=== PATIENT | female | born 1965 | race African-American/Black ===

== ENCOUNTER 2016-11-14 09:36 | Emergency (ER) | payer SELFPAY ==
[2016-11-14] MEDS ORDERED: oxyCODONE TAB* 5 MG TAB PO ONE (10:03)
--- NOTE | 2016-11-14 10:31 | RAD ---
INDICATION: Left foot injury. TECHNIQUE: 3 views of the left foot were obtained. FINDINGS: There is soft tissue swelling over the lateral aspect of the hindfoot and adjacent to the distal first metatarsal. There appears is deformity of the distal fifth metatarsal possibly related to an old fracture. There appears to be an acute nondisplaced fracture of the through the medial aspect of the distal first metatarsal head extending to the articular margin. Joint spaces appear maintained. IMPRESSION: NONDISPLACED INTRA-ARTICULAR FRACTURE OF THE DISTAL FIRST METATARSAL.
--- NOTE | 2016-11-14 10:32 | RAD ---
INDICATION: Left ankle injury. TECHNIQUE: 3 views of the left ankle were obtained. FINDINGS: There is prominent soft tissue swelling adjacent to the lateral aspect of the ankle. On one view there is a faint radiolucent line extending through the distal fibular tip suggestive of a nondisplaced fracture. No other fractures are seen. Joint spaces appear maintained. IMPRESSION: LATERAL SOFT TISSUE SWELLING AND PROBABLE NONDISPLACED FRACTURE OF THE DISTAL FIBULAR TIP.
[2016-11-14] MEDS ORDERED: Atenolol TAB* 50 MG PO ONE (11:50)
--- NOTE | 2016-11-14 12:15 | ED ---
Lower Extremity - HPI Summary HPI Summary: Pt here w/ Lt ankle/foot pain and swelling. She reports falling while trying to stand up from toilet seat - developed pain and fell. She lives alone and her child brought her in today. She denies numbness, tingling, weakness but as a good deal of pain - worse w/ movement. Has not tried anything for pain prior to arrival. H/o similar injury in Rt ankle resulting in fx. She denies osteopenia. Also of note is her BP and heart rate. Pt reports h/o malignant HTN - she [facility] and on atenolol nightly. Chart reveals she was on an ARB. She has not taken either of these medications in months. Denies THOMAS, change in vision, fatigue, chest pain or SOB at this time. Reports [facility] as she wasn't sure how to get there - cab cost is too high. - History of Current Complaint Chief Complaint: EDExtremityLower Stated Complaint: FALL LEFT ANKLE Time Seen by Provider: 11/14/16 10:46 Hx Obtained From: Patient Pain Intensity: 10 - Allergies/Home Medications Allergies/Adverse Reactions: Allergies Allergy/AdvReac Type Severity Reaction Status Date / Time Latex Allergy Intermediate Edema Verified 02/19/15 13:53 Morphine Allergy Mild Vomiting Verified 02/19/15 13:53 Piperacillin [From Zosyn] Allergy Hives Verified 02/19/15 13:53 Tazobactam [From Zosyn] Allergy Hives Verified 02/19/15 13:53 PMH/Surg Hx/FS Hx/Imm Hx Previously Healthy: Yes Endocrine/Hematology History: Reports: Hx Anemia Denies: Hx Anticoagulant Therapy, Hx Blood Disorders, Hx Blood Transfusions, Hx Bone Marrow Disease, Hx Diabetes, Hx Systemic Lupus Erythematosus, Hx Sickle Cell Disease, Hx Thyroid Disease, Hx Unexplained Bleeding, Other Endocrine/ Hematological Disorders Cardiovascular History: Reports: Hx Hypertension - malignant HTN - was on medication - non-compliant Denies: Hx Aneurysm, Hx Angina, Hx Angioplasty, Hx Auto Implanted Cardiovert Defib, Hx Cardiac Arrest, Hx Cardiomegaly, Hx Congenital Heart Disease, Hx Congestive Heart Failure, Hx Coronary Artery Disease, Hx Deep Vein Thrombosis, Hx Embolism, Hx Hypercholesterolemia, Hx Hypotension, Hx Pacemaker/ICD, Hx Peripheral Vascular Disease, Hx Rheumatic Fever, Hx Syncope, Hx Valvular Heart Disease, Other Cardiovascular Problems/Disorders Respiratory History: Reports: Hx Asthma Denies: Hx Chronic Bronchitis, Hx Chronic Obstructive Pulmonary Disease (COPD ), Hx Cystic Fibrosis, Hx Lung Cancer, Hx Pleural Effusion, Hx Pneumonia, Hx Pulmonary Edema, Hx Pulmonary Embolism, Hx Seasonal Allergies, Hx Sleep Apnea, Other Respiratory Problems/Disorders GI History: Reports: Hx Cirrhosis, Hx Gall Bladder Disease, Hx Gastroesophageal Reflux Disease, Other GI Disorders - chronic pancreatitis Denies: Hx Crohn's Disease, Hx Diverticulosis, Hx Gastrointestinal Bleed, Hx Hiatal Hernia, Hx Irritable Bowel, Hx Jaundice, Hx Obstructive Bowel, Hx Ileostomy, Hx Pyloric Stenosis, Hx Ulcer History: Reports: Hx Acute Renal Failure Denies: Hx Benign Prostatic Hyperplasia, Hx Chronic Renal Failure, Hx Dialysis, Hx Kidney Infection, Hx Kidney Stones, Hx Renal Disease, Other Problems/Disorders Sensory History: Reports: Hx Contacts or Glasses Denies: Hx Hearing Aid Opthamlomology History: Reports: Hx Contacts or Glasses Neurological History: Reports: Other Neuro Impairments/Disorders Denies: Hx Dementia, Hx Developmental Delay, Hx Headaches, Hx Migraine, Hx Nerve Disease, Hx Seizures, Hx Spinal Cord Injury, Hx Transient Ischemic Attacks (TIA) Psychiatric History: Reports: Hx Anxiety, Hx Depression, Hx Substance Abuse Denies: Hx Attention Deficit Hyperactivity Disorder, Hx Eating Disorder, Hx Panic Disorder, Hx Post Traumatic Stress Disorder, Hx Inpatient Treatment, Hx Community Mental Health Tx, Hx Schizophrenia, Hx Bipolar Disorder, Hx Suicide Attempt, Hx of Violent Episodes Against Others - Cancer History Hx Chemotherapy: No Hx Radiation Therapy: No Hx Palliative Cancer Treatment: No - Surgical History Surgery Procedure, Year, and Place: X3. APPENDECTOMY. RT ANKLE ORIF. SURGERY FOR BOWEL OBSTRUCTION (UNSURE EXACTLY WHAT WAS DONE). TUBAL. HYSTERECTOMY Hx Anesthesia Reactions: No Infectious Disease History: No Infectious Disease History: Denies: Hx Clostridium Difficile, Hx Hepatitis, Hx Human Immunodeficiency Virus (HIV), Hx of Known/Suspected MRSA, Hx Shingles, Hx Tuberculosis, Hx Known/ Suspected VRE, Hx Known/Suspected VRSA, History Other Infectious Disease, Traveled Outside the [place] in Last 30 Days - Family History Known Family History: Positive: None - Social History Occupation: Unemployed Alcohol Use: Occasionally Alcohol Amount: "twice a week" - pt denies abuse Hx Substance Use: No - pt denies Substance Use Type: Reports: None Substance Use Comment - Amount & Last Used: about 3 times a yr Hx Tobacco Use: No Smoking Status (MU): Never Smoked Tobacco Have You Smoked in the Last Year: No Review of Systems Constitutional: Negative Negative: Fever, Chills, Fatigue Eyes: Negative Negative: Photophobia, Blurred Vision, Diplopia Negative: Dental Pain Cardiovascular: Negative Negative: Chest Pain Respiratory: Negative Negative: Shortness Of Breath Gastrointestinal: Negative Positive: no symptoms reported Musculoskeletal: Other - see HPI Skin: Other - swelling as in HPI Neurological: Negative Psychological: Normal All Other Systems Reviewed And Are Negative: Yes Physical Exam Triage Information Reviewed: Yes Vital Signs On Initial Exam: Initial Vitals Temp Pulse Resp BP Pulse Ox 98.9 F 138 20 112/65 98 11/14/16 09:42 11/14/16 09:42 11/14/16 09:42 11/14/16 09:42 11/14/16 09:42 Vital Signs Reviewed: Yes Appearance: Positive: Well-Appearing - appears chronically fatigued - undereyes are dark w/ sagging, Pain Distress - appears well at rest - pain w/ movement of Lt ankle/foot, Thin Skin: Positive: Warm, Dry - christine edema of dorsal foot and lateral ankle of Lt LE Head/Face: Positive: Normal Head/Face Inspection Eyes: Positive: EOMI ENT: Positive: Hearing grossly normal Respiratory/Lung Sounds: Positive: Breath Sounds Present Cardiovascular: Positive: Normal, RRR, Pulses are Symmetrical in both Upper and Lower Extremities, S1, S2. Negative: Murmur, Rub Musculoskeletal: Positive: Limited @ - Lt ankle and toe movements limited d/t pain Neurological: Positive: Normal, Sensory/Motor Intact, Alert, Oriented to Person Place, Time, CN Intact II-III Psychiatric: Positive: Normal - pt's general education level appears lower than appropriate for age - also detect odor of ETOH - [place]olphin Coma Scale Coma Scale Total: 15 Procedures - Splinting Pre-Made Type: cam walking boot Pre-Proc Neuro Vasc Exam: normal Post-Proc Neuro Vasc Exam: normal Diagnostics - Vital Signs Vital Signs Temp Pulse Resp BP Pulse Ox 11/14/16 10:01 118 97 11/14/16 09:54 98.4 F 125 18 142/105 96 11/14/16 09:42 98.9 F 138 20 112/65 98 - Laboratory Lab Statement: Any lab studies that have been ordered have been reviewed, and results considered in the medical decision making process. Lower Extremity Course/Dx - Course Course Of Treatment: Pt provided with PO pain medication for ankle and foot fractures. Placed in CAM boot and instructed on how to use crutches however she had difficulty. Will take crutches to practice with at home but also reports having a walker she will use. Explained the important of avoiding weight bearing with current injury - pt voices understanding. Explained importance of follow-up with orthopedics as well as PCP to control her malignant HTN - explained dangers of leaving untreated. Explained she may be able to get a [facility] - call to inquire. Provided w/ 30 days of atenolol in the meantime as she's had this in the past w/o difficulty. Minimal norco rx provided as pt denies h/o substance abuse however clinical concern that this is not truthful - do not want to provide medications that could harm her. Explained verbally and in writing how to take these meds and how to f/u if concerns arise. Pt agrees w/ plan. - Diagnoses Provider Diagnoses: Closed fracture of first metatarsal bone of left foot, Closed fracture of left distal fibula, Malignant hypertension Discharge - Discharge Plan Condition: Stable Disposition: HOME Prescriptions: HYDROcodone/ACETAMIN 5-325 MG* [Anatone 5-325 TAB*] 1 tab PO Q6H PRN #12 tab MDD 4 PRN Reason: Pain Ibuprofen TAB* [Motrin TAB* 600 MG] 600 mg PO Q6H PRN #20 tab PRN Reason: Pain Patient Education Materials: Ankle Fracture (ED), Crutch Instructions (ED), Foot Fracture in Adults (ED), Hypertension (ED) Referrals: [facility] [place] [facility] REFERRAL [Outside] Raul Tay MD [Medical Doctor] - Additional Instructions: Keep boot in place until seen by orthopedics - do not bear weight on foot - use crutches to avoid stepping or walking on this leg. Rest, ice, and elevate as much as possible to reduce pain and swelling You may take ibuprofen 600mg every 6 hours with food for pain, swelling You may also take norco, a narcotic pain medication, if pain is not controlled with methods described above. This medication can be deadly if taken above prescribed dose - DO NOT TAKE MORE THAN PRESCRIBED. Do not mix with alcohol or other illicit drugs. Do not operate machinery while taking. If you feel you are developing an addiction to this medication, seek medical assistance at the [facility] or through your PCP's office. For your fractures, follow up with an child welfare specialist. Call Wednesday to schedule an appointment. Contact information included here today. *If you develop numbness or weakness, return to ED NOTE: You have reported a history of malignant hyperntesion. You were taking atenolol 50mg daily for this. We have restarted this for you today however it is advised that you return to a PCP to continue therapy and monitor organs that can become damaged as a result of this condition - these include wrosening of heart function, kidney function, eye sight, etc. It is important that you take medication to prevent heart attack, stroke and other conditions mentioned previously. Please call the referral line or go to [facility] to discuss continued medication therapy. If you develop chest pain, shortness of breath, weakness, syncope, return to ED
[2016-11-14 12:47] VITALS: BP 145/106
== END 2016-11-14 12:49 | disposition home or self-care (01) ==
LOC: ED 09:36
DX: S92.312A Displaced fracture of first metatarsal bone, left foot, initial encounter for closed fracture (principal); S82.832A Other fracture of upper and lower end of left fibula, initial encounter for closed fracture; I10 Essential (primary) hypertension; W18.11XA Fall from or off toilet without subsequent striking against object, initial encounter; Y92.9 Unspecified place or not applicable; Z88.0 Allergy status to penicillin; Z88.5 Allergy status to narcotic agent
CPT/HCPCS: 93005; 99283; A9270-GY

== ENCOUNTER 2017-11-02 14:02 | Emergency (ER) | payer MEDICARE ==
--- NOTE | 2017-11-02 14:34 | ED ---
Neurological HPI - HPI Summary HPI Summary: 52 y/o female presents to the ED c/o pain and numbness in bilateral LE. Neuropathy in lower extremities. Pain aggravated with touch. Pt c/o pinprick tingling in feet going up to her thighs. Sx APPY, bowel obstruction. No DM. Gabapentin not alleviated sx. Associated sx: lower back pain, neck pain, RLQ ABD pain. - History of Current Complaint Chief Complaint: EDExtremityLower Stated Complaint: BACK AND FEET PAIN Hx Obtained From: Patient Neurological Deficit Location: RLE, LLE Pain Intensity: 5 Character: Numbness/Tingling, Sensory Loss Aggravating: Nothing Alleviating: Nothing Associated Signs and Symptoms: Positive: Pain - low back and ABD, Numbness - Additional Pertinent History Primary Care Physician: CRISSY - Allergy/Home Medications Allergies/Adverse Reactions: Allergies Allergy/AdvReac Type Severity Reaction Status Date / Time latex Allergy Edema Verified 11/02/17 14:14 morphine Allergy Vomiting Verified 11/02/17 14:14 piperacillin [From Zosyn] Allergy Hives Verified 11/02/17 14:14 tazobactam [From Zosyn] Allergy Hives Verified 11/02/17 14:14 PMH/Surg Hx/FS Hx/Imm Hx Previously Healthy: No Endocrine/Hematology History: Reports: Hx Anemia Denies: Hx Anticoagulant Therapy, Hx Blood Disorders, Hx Blood Transfusions, Hx Bone Marrow Disease, Hx Diabetes, Hx Systemic Lupus Erythematosus, Hx Sickle Cell Disease, Hx Thyroid Disease, Hx Unexplained Bleeding, Other Endocrine/ Hematological Disorders Cardiovascular History: Reports: Hx Hypertension - malignant HTN - was on medication - non-compliant Denies: Hx Aneurysm, Hx Angina, Hx Angioplasty, Hx Auto Implanted Cardiovert Defib, Hx Cardiac Arrest, Hx Cardiomegaly, Hx Congenital Heart Disease, Hx Congestive Heart Failure, Hx Coronary Artery Disease, Hx Deep Vein Thrombosis, Hx Embolism, Hx Hypercholesterolemia, Hx Hypotension, Hx Pacemaker/ICD, Hx Peripheral Vascular Disease, Hx Rheumatic Fever, Hx Syncope, Hx Valvular Heart Disease, Other Cardiovascular Problems/Disorders Respiratory History: Reports: Hx Asthma Denies: Hx Chronic Bronchitis, Hx Chronic Obstructive Pulmonary Disease (COPD ), Hx Cystic Fibrosis, Hx Lung Cancer, Hx Pleural Effusion, Hx Pneumonia, Hx Pulmonary Edema, Hx Pulmonary Embolism, Hx Seasonal Allergies, Hx Sleep Apnea, Other Respiratory Problems/Disorders GI History: Reports: Hx Cirrhosis, Hx Gall Bladder Disease, Hx Gastroesophageal Reflux Disease, Other GI Disorders - chronic pancreatitis Denies: Hx Crohn's Disease, Hx Diverticulosis, Hx Gastrointestinal Bleed, Hx Hiatal Hernia, Hx Irritable Bowel, Hx Jaundice, Hx Obstructive Bowel, Hx Ileostomy, Hx Pyloric Stenosis, Hx Ulcer History: Reports: Hx Acute Renal Failure Denies: Hx Benign Prostatic Hyperplasia, Hx Chronic Renal Failure, Hx Dialysis, Hx Kidney Infection, Hx Kidney Stones, Hx Renal Disease, Other Problems/Disorders Sensory History: Reports: Hx Contacts or Glasses Denies: Hx Hearing Aid Opthamlomology History: Reports: Hx Contacts or Glasses Neurological History: Reports: Other Neuro Impairments/Disorders Denies: Hx Dementia, Hx Developmental Delay, Hx Headaches, Hx Migraine, Hx Nerve Disease, Hx Seizures, Hx Spinal Cord Injury, Hx Transient Ischemic Attacks (TIA) Psychiatric History: Reports: Hx Anxiety, Hx Depression, Hx Substance Abuse Denies: Hx Attention Deficit Hyperactivity Disorder, Hx Eating Disorder, Hx Panic Disorder, Hx Post Traumatic Stress Disorder, Hx Inpatient Treatment, Hx Community Mental Health Tx, Hx Schizophrenia, Hx Bipolar Disorder, Hx Suicide Attempt, Hx of Violent Episodes Against Others - Cancer History Hx Chemotherapy: No Hx Radiation Therapy: No Hx Palliative Cancer Treatment: No - Surgical History Surgery Procedure, Year, and Place: X3. APPENDECTOMY. RT ANKLE ORIF. SURGERY FOR BOWEL OBSTRUCTION (UNSURE EXACTLY WHAT WAS DONE). TUBAL. HYSTERECTOMY Hx Anesthesia Reactions: No Infectious Disease History: No Infectious Disease History: Denies: Hx Clostridium Difficile, Hx Hepatitis, Hx Human Immunodeficiency Virus (HIV), Hx of Known/Suspected MRSA, Hx Shingles, Hx Tuberculosis, Hx Known/ Suspected VRE, Hx Known/Suspected VRSA, History Other Infectious Disease, Traveled Outside the [place] in Last 30 Days - Family History Known Family History: Positive: None - Social History Alcohol Use: Occasionally Alcohol Amount: "twice a week" - pt denies abuse Hx Substance Use: No - pt denies Substance Use Type: Reports: None Substance Use Comment - Amount & Last Used: about 3 times a yr Hx Tobacco Use: No Smoking Status (MU): Never Smoked Tobacco Have You Smoked in the Last Year: No Review of Systems Constitutional: Negative Eyes: Negative ENT: Negative Cardiovascular: Negative Respiratory: Negative Positive: Abdominal Pain Genitourinary: Negative Musculoskeletal: Other - low back pain, neck pain Skin: Negative Positive: Numbness - and pain @ LE Psychological: Normal Physical Exam - Summary Physical Exam Summary: Appearance: Alert, conversive, nontoxic appearing Skin: Warm, dry, no mottling, no rashes, no contusions HEENT: EOMI, PERRL, dry mucous membranes Neck: No masses on the neck, supple Respiratory: Clear to auscultation, breath sounds present, no rales, no rhonchi , no wheezes Cardiovascular: Tachycardic, pulses are symmetrical in both lower and upper extremities Abdomen: Soft, non-tender Bowel Sounds: Present Musculoskeletal: No CVA tenderness, no obvious deformity, moving all extremities in a grossly normal manner Neurological: A&Ox3, CN II-XII Intact, moving all extremities symmetrically. Decreased sensation at lower extremities. Slightly TTP at R big toe and second digit. Psychiatric: Normal affect and mood Triage Information Reviewed: Yes Vital Signs On Initial Exam: Initial Vitals Temp Pulse Resp BP Pulse Ox 97.3 F 118 17 134/99 97 11/02/17 14:11 11/02/17 14:11 11/02/17 14:11 11/02/17 14:11 11/02/17 14:11 Vital Signs Reviewed: Yes Diagnostics - Vital Signs Vital Signs Temp Pulse Resp BP Pulse Ox 11/02/17 14:11 97.3 F 118 17 134/99 97 - Laboratory Result Diagrams: 11/02/17 16:06 11/02/17 16:06 Lab Statement: Any lab studies that have been ordered have been reviewed, and results considered in the medical decision making process. Course/Dx - Diagnoses Provider Diagnoses: Peripheral neuropathy Discharge - Sign-Out/Discharge Documenting (check all that apply): Patient Departure - Discharge Plan Condition: Stable Disposition: HOME Patient Education Materials: Peripheral Neuropathy (ED) Referrals: Shayna Montoya MD [Medical Doctor] - Additional Instructions: Please follow up with your primary care physician. return if worse or any new symptoms. Take all medications as previously instructed. - Billing Disposition and Condition Condition: STABLE Disposition: Home - Attestation Statements Document Initiated by Scribe: Yes Documenting Scribe: Dorian Brambila Provider For Whom Scribe is Documenting (Include Credential): Nehal Gao MD Scribe Attestation: Dorian Zazueta, scribed for Nehal Gao MD on 11/02/17 at [id number].
[2017-11-02] MEDS ORDERED: NS 0.9% 1000 ML* 1,000 ML IV ONE (14:36)
[2017-11-02] MEDS ORDERED: HYDROcodone/ACETAMIN 5-325 MG* 1 TAB PO ONE (14:37)
[2017-11-02 16:40] LABS: ABS Basophils 0 10^3/ul (0-0.2); ABS Eosinophils 0.1 10^3/ul (0-0.6); ABS Monocytes 0.2 10^3/ul (0-0.8); ABS Neutrophils 3.6 10^3/ul (1.5-7.7); ABS Nucleated RBC 0 10^3/ul; Eosinophil % 1.2 % (0-6); Hematocrit 38 % (35-47); Lymphocyte % 21.1 % (25-47); Mean Corpuscular HGB Conc 34 g/dl (31-36); Mean Corpuscular Hemoglobin 29 pg (27-31); Mean Corpuscular Volume 85 fL (80-97); Mean Platelet Volume 8.1 um3 (7.4-10.4); Nucleated Red Blood Cells % 0; Platelet Count 114 10^3/ul (150-450); Red Blood Count 4.44 10^6/ul (4.00-5.40); Red Cell Distribution Width 15 % (10.5-15); White Blood Count 4.9 10^3/ul (3.5-10.8)
[2017-11-02 16:43] LABS: EGFR Non-African American 79.9 (>60)
[2017-11-02 18:00] VITALS: BP 145/109
== END 2017-11-02 17:59 | disposition home or self-care (01) ==
LOC: ED 14:02
DX: G62.9 Polyneuropathy, unspecified (principal); M54.5 Low back pain; R20.0 Anesthesia of skin
CPT/HCPCS: 36415; 80053; 83735; 84443; 85025; 96360; 99282

== ENCOUNTER 2019-02-11 10:45 | Inpatient (IN) | payer MEDICARE, MEDICAID ==
[2019-02-11] MEDS ORDERED: NS 0.9% 1000 ML** 1,000 ML IV ONE ×2 (11:04→13:02)
--- NOTE | 2019-02-11 11:11 | ED ---
Lower Extremity - HPI Summary HPI Summary: The pt is a 53 yr old female [facility]o left leg pain and weakness beginning 2 days [employer]. She states that she was walking in the kitchen 2 days [employer] when her knees buckled underneath her and she fell. She did not hit her head or neck. Ever since then she has had pain in her feet and ankles up to her knees bilaterally. She has not been able to walk or stand up and has been sliding herself on the floor to move around. She rates her current pain severity due to the leg pain a 9/10. No aggravating or alleviating factors noted. She also reports some left hip pain but denies any CP or SOB. She has Hx of peripheral neuropathy and HTN. - History of Current Complaint Chief Complaint: EDExtremityLower Stated Complaint: LEFT LOWER LEG PAIN PER EMS Time Seen by Provider: 02/11/19 10:51 Hx Obtained From: Patient Mechanism Of Injury: Fall From A Standing Position Onset of Pain: Days Onset/Duration: Still Present Severity Initially: Severe Severity Currently: Severe Pain Intensity: 9 Pain Scale Used: 0-10 Numeric Timing: Constant, Lasting Days Location: Is Discrete @ - legs Associated Signs And Symptoms: Positive: Negative - CP, SOB, Knee Pain, Other - pos - foot pain, ankle pain, Aggravating Factor(s): Nothing Alleviating Factor(s): Nothing Able to Bear Weight: No - Allergies/Home Medications Allergies/Adverse Reactions: Allergies Allergy/AdvReac Type Severity Reaction Status Date / Time latex Allergy Edema Verified 11/02/17 14:14 piperacillin [From Zosyn] Allergy Hives Verified 11/02/17 14:14 tazobactam [From Zosyn] Allergy Hives Verified 11/02/17 14:14 morphine AdvReac Vomiting Verified 02/11/19 14:32 PMH/Surg Hx/FS Hx/Imm Hx Endocrine/Hematology History: Reports: Hx Anemia Denies: Hx Anticoagulant Therapy, Hx Blood Disorders, Hx Blood Transfusions, Hx Bone Marrow Disease, Hx Diabetes, Hx Systemic Lupus Erythematosus, Hx Sickle Cell Disease, Hx Thyroid Disease, Hx Unexplained Bleeding, Other Endocrine/ Hematological Disorders Cardiovascular History: Reports: Hx Hypertension - malignant HTN - was on medication - non-compliant Denies: Hx Aneurysm, Hx Angina, Hx Angioplasty, Hx Auto Implanted Cardiovert Defib, Hx Cardiac Arrest, Hx Cardiomegaly, Hx Congenital Heart Disease, Hx Congestive Heart Failure, Hx Coronary Artery Disease, Hx Deep Vein Thrombosis, Hx Embolism, Hx Hypercholesterolemia, Hx Hypotension, Hx Pacemaker/ICD, Hx Peripheral Vascular Disease, Hx Rheumatic Fever, Hx Syncope, Hx Valvular Heart Disease, Other Cardiovascular Problems/Disorders Respiratory History: Reports: Hx Asthma Denies: Hx Chronic Bronchitis, Hx Chronic Obstructive Pulmonary Disease (COPD ), Hx Cystic Fibrosis, Hx Lung Cancer, Hx Pleural Effusion, Hx Pneumonia, Hx Pulmonary Edema, Hx Pulmonary Embolism, Hx Seasonal Allergies, Hx Sleep Apnea, Other Respiratory Problems/Disorders GI History: Reports: Hx Cirrhosis, Hx Gall Bladder Disease, Hx Gastroesophageal Reflux Disease, Other GI Disorders - chronic pancreatitis Denies: Hx Crohn's Disease, Hx Diverticulosis, Hx Gastrointestinal Bleed, Hx Hiatal Hernia, Hx Irritable Bowel, Hx Jaundice, Hx Obstructive Bowel, Hx Ileostomy, Hx Pyloric Stenosis, Hx Ulcer History: Reports: Hx Acute Renal Failure Denies: Hx Benign Prostatic Hyperplasia, Hx Chronic Renal Failure, Hx Dialysis, Hx Kidney Infection, Hx Kidney Stones, Hx Renal Disease, Other Problems/Disorders Sensory History: Reports: Hx Contacts or Glasses Denies: Hx Hearing Aid Opthamlomology History: Reports: Hx Contacts or Glasses Neurological History: Reports: Other Neuro Impairments/Disorders Denies: Hx Dementia, Hx Developmental Delay, Hx Headaches, Hx Migraine, Hx Nerve Disease, Hx Seizures, Hx Spinal Cord Injury, Hx Transient Ischemic Attacks (TIA) Psychiatric History: Reports: Hx Anxiety, Hx Depression, Hx Substance Abuse Denies: Hx Attention Deficit Hyperactivity Disorder, Hx Eating Disorder, Hx Panic Disorder, Hx Post Traumatic Stress Disorder, Hx Inpatient Treatment, Hx Community Mental Health Tx, Hx Schizophrenia, Hx Bipolar Disorder, Hx Suicide Attempt, Hx of Violent Episodes Against Others - Cancer History Hx Chemotherapy: No Hx Radiation Therapy: No Hx Palliative Cancer Treatment: No - Surgical History Surgery Procedure, Year, and Place: X3. APPENDECTOMY. RT ANKLE ORIF. SURGERY FOR BOWEL OBSTRUCTION (UNSURE EXACTLY WHAT WAS DONE). TUBAL. HYSTERECTOMY Hx Anesthesia Reactions: No Infectious Disease History: No Infectious Disease History: Denies: Hx Clostridium Difficile, Hx Hepatitis, Hx Human Immunodeficiency Virus (HIV), Hx of Known/Suspected MRSA, Hx Shingles, Hx Tuberculosis, Hx Known/ Suspected VRE, Hx Known/Suspected VRSA, History Other Infectious Disease, Traveled Outside the [place] in Last 30 Days - Family History Known Family History: Negative: Diabetes - Social History Alcohol Use: Occasionally Alcohol Amount: "twice a week" - pt denies abuse Hx Substance Use: No - pt denies Substance Use Type: Reports: None Substance Use Comment - Amount & Last Used: about 3 times a yr Hx Tobacco Use: No Smoking Status (MU): Never Smoked Tobacco Have You Smoked in the Last Year: No Review of Systems Negative: Chest Pain Negative: Shortness Of Breath Positive: Other - pos - knee pain, foot pain, ankle pain Positive: Weakness - in knees All Other Systems Reviewed And Are Negative: Yes Physical Exam - Summary Physical Exam Summary: Constitutional: Well-developed, Well-nourished, Alert. (-) Distressed Skin: Warm, Dry HENT: Normocephalic; Atraumatic Eyes: Conjunctiva normal Neck: Musculoskeletal ROM normal neck. (-) JVD, (-) Stridor, (-) Tracheal deviation Cardio: Tachycardic, Heart sounds normal; Intact distal pulses; The pedal pulses are 2+ and symmetric. Radial pulses are 2+ and symmetric. (-) Murmur Pulmonary/Chest wall: Effort normal. (-) Respiratory distress, (-) Wheezes, (-) Rales Abd: Soft, (-) tenderness, (-) Distension, (-) Guarding, (-) Rebound Musculoskeletal: (-) Edema Left Leg: Mild swelling about the ankle, bilateral leg tenderness, no gross deformity, N/V intact Lymph: (-) Cervical adenopathy Neuro: Alert, Oriented x3 Psych: Mood and affect Normal Triage Information Reviewed: Yes Vital Signs On Initial Exam: Initial Vitals Temp Pulse Resp BP Pulse Ox 97.3 F 122 19 197/131 99 02/11/19 10:49 02/11/19 10:49 02/11/19 10:49 02/11/19 10:49 02/11/19 10:49 Vital Signs Reviewed: Yes Procedures - Sedation Patient Received Moderate/Deep Sedation with Procedure: No Diagnostics - Vital Signs Vital Signs Temp Pulse Resp BP Pulse Ox 02/11/19 10:49 97.3 F 122 19 197/131 99 - Laboratory Result Diagrams: 02/11/19 11:26 02/11/19 11:26 Lab Statement: Any lab studies that have been ordered have been reviewed, and results considered in the medical decision making process. - Radiology Lower Extremity XR Radiology Interpretation Completed By: Radiologist Summary of Radiographic Findings: IMPRESSION: 1. Complex mildly displaced fracture of the distal shaft of the tibia. 2. Minimally displaced obliquely imaging fracture through the proximal shaft of the fibula. ED Physician has reviewed this report. Ankle XR Radiology Interpretation Completed By: Radiologist Summary of Radiographic Findings: IMPRESSION: Complex mildly displaced distal tibial shaft fracture. ED Physician has reviewed this report. - EKG No standard instances Cardiac Rate: Tachycardia EKG Rhythm: Sinus Rhythm ST Segment: Normal Ectopy: None Lower Extremity Course/Dx - Course Course Of Treatment: The pt is a 53 yr old female presenting to [facility] c/o left leg pain and weakness beginning 2 days [employer]. She states that she was walking in the kitchen 2 days [employer] when her knees buckled underneath her and she fell. She did not hit her head or neck. Ever since then she has had pain in her feet and ankles up to her knees bilaterally but predominantly in the left leg. She has not been able to walk or stand up and has been sliding herself on the floor to move around. Lower extremity XR reveals: 1. Complex mildly displaced fracture of the distal shaft of the tibia. 2. Minimally displaced obliquely imaging fracture through the proximal shaft of the fibula. Ankle XR reveals Complex mildly displaced distal tibial shaft fracture. Test results normal except for Potassium 3.4, CO2 21, Anion Gap 15, BUN/Creatinine 24.1, Glucose 106 , ALT 56, and Globulin 4.2. Final Dx are tibia Fx, fibula Fx, and HTN. Dr. Miles splinted the pt's left leg and will admit her to medicine. Pt is agreeable with this plan. - Diagnoses Provider Diagnoses: Tibia fracture, Fibula fracture, HTN (hypertension) - Physician Notifications Discussed Care Of Patient With: Ilya Miles - Dr. Miles will admit the pt to medicine. Instructed by Provider To: Admit As Inpatient Discharge ED - Sign-Out/Discharge Documenting (check all that apply): Patient Departure - admit - Discharge Plan Condition: Stable Disposition: ADMITTED TO [facility] - Billing Disposition and Condition Condition: STABLE Disposition: Admitted to [facility] - Attestation Statements Document Initiated by Scribe: Yes Documenting Scribe: Joaquin Holt Provider For Whom Scribe is Documenting (Include Credential): Mohan Bear DO Scribe Attestation: I, Joaquin Holt, scribed for Mohan Bear DO on 02/11/19 at 1818. Scribe Documentation Reviewed: Yes Provider Attestation: The documentation as recorded by the scribe, Joaquin Holt accurately reflects the service I personally performed and the decisions made by me, Mohan Bear DO Status of Scribe Document: Viewed
[2019-02-11 11:33] LABS: ABS Basophils 0.1 10^3/ul (0-0.2); ABS Lymphocytes 2.4 10^3/ul (1.0-4.8); ABS Monocytes 0.5 10^3/ul (0-0.8); ABS Neutrophils 6.1 10^3/ul (1.5-7.7); Eosinophil % 0.1 %; Hematocrit 38 % (35-47); Hemoglobin 13.3 g/dL (12.0-16.0); Lymphocyte % 26.4 %; Mean Corpuscular HGB Conc 35 g/dL (31-36); Mean Corpuscular Hemoglobin 30 pg (27-31); Mean Corpuscular Volume 86 fL (80-97); Mean Platelet Volume 7.8 fL (7.4-10.4); Platelet Count 176 10^3/uL (150-450); Red Blood Count 4.43 10^6 /uL (3.70-4.87); Red Cell Distribution Width 14 % (10-15); White Blood Count 9.1 10^3/uL (3.5-10.8)
[2019-02-11 11:48] LABS: Albumin 4.5 g/dL (3.2-5.2); Albumin/Globulin Ratio 1.1 (1-3); BUN/Creatinine Ratio 24.1 (8-20); Calcium 10.2 mg/dL (8.6-10.3); EGFR African American 92.1 (>60); EGFR Non-African American 76.1 (>60); Globulin 4.2 g/dL (2-4); Potassium 3.4 mmol/L (3.5-5.0); Total Bilirubin 0.9 mg/dL (0.2-1.0); Total Protein 8.7 g/dL (6.4-8.9)
[2019-02-11] MEDS ORDERED: HYDROmorphone INJ* 0.5 MG/0.5 ML SYRINGE IV ONE ×2 (12:06→13:01)
[2019-02-11] MEDS ORDERED: Ondansetron INJ* 2 MG/ML VIAL IV ONE (12:07)
[2019-02-11] MEDS ORDERED: Labetalol IV* 5 MG/ML 20 ML VIAL IV PUSH ONE (12:39)
[2019-02-11 13:35] LABS: Activated Partial Thrombo Time 36.8 seconds (26.0-38.0); INR 1.16 (0.82-1.09)
[2019-02-11] MEDS ORDERED: Acetaminophen TAB* 325 MG PO PRN (14:01)
[2019-02-11] MEDS ORDERED: Potassium Chlor TAB* 20 MEQ TAB.ER PO ONE (14:02)
[2019-02-11] MEDS ORDERED: Ondansetron INJ* 2 MG/ML VIAL IV PRN (14:03)
[2019-02-11] MEDS ORDERED: NS 0.9% 1000 ML** 1,000 ML IV SCH (14:15)
[2019-02-11] MEDS ORDERED: Atenolol TAB* 25 MG PO SCH (15:00)
--- NOTE | 2019-02-11 15:16 | CONSULT ---
Consult Consult: Orthopedic Surgery Consultation Date: 02/11/2019 Requesting Service: ER Chief Complaint: Left leg pain. History: A 53-year-old woman who reports a fall on 02/09/19 at home, because her knees buckled. She reports immediate left leg pain and an inability to bear weight. She reports she has been moving around her house on her buttocks for the last couple of days until deciding to come into the emergency room today. She does report bilateral peripheral neuropathy up to the proximal lower leg bilaterally. She does report a history of a right ankle fracture that required surgery. Denies any prior problems with the left leg or ankle. The pain is located at the left leg and is constant moderate, sharp. Pain worse with movement and lessened when rested. Review of Systems: Negative for fever, recent visual changes, difficulty swallowing, chest pain, shortness of breath, abdominal pain, hematuria, easy bruising, diffuse weakness or lack of coordination, and diffuse rash. PMH: Hypertension, peripheral neuropathy, hemorrhagic stroke PSH: Appendectomy, surgery for a bowel obstruction, right ankle fracture surgery , x3, hysterectomy Medications: Atenolol Allergies: Morphine, Zosyn SH: She lives in an apartment with her son. He uses a walker sometimes. No tobacco use. Occasional alcohol use. Positive marijuana use. FH: No family history of thrombophilias Physical Examination: Constitutional: Temp Pulse Resp BP Pulse Ox 97.3 F 86 13 187/127 98 02/11/19 10:49 02/11/19 14:00 02/11/19 14:53 02/11/19 14:53 02/11/19 14:00 General appearance is healthy and non-septic in no acute distress. Cardiovascular: Pulse examination demonstrates positive pedal pulses with brisk capillary refill. There are no varicosities. Abdomen: Soft and nontender Lymphatic: No lymphadenopathy appreciated. Skin: Bilateral upper and lower extremity examination demonstrates no ulcerative lesions. Psychiatric / Neurological: Appropriate affect. Alert and oriented to person, place and time. There is no significant abnormality in coordination appreciated. Normoreflexive deep tendon reflexes. Musculoskeletal: Bilateral upper extremities and contralateral lower extremity show full range of motion with no evidence of instability and no tenderness with palpation and 5 /5 strength. There is no gross deformity. There is a deformity at the lower leg with approximately 70 of external rotation of the ankle and foot. Skin intact 5/5 motor strength with diminished light touch sensation in her bilateral feet, ankles and lower legs. There is no global swelling, edema, or varicosities. She does have some mild edema about the lower leg and ankle. TTP at the distal tibial shaft. The foot is warm and well perfused with good capillary refill. Flexes and extends toes. Imaging: X-rays and CT scan were obtained, and independently interpreted and show comminuted, displaced fractures of the distal tibial diaphysis and metaphysis. She also has nondisplaced proximal fibula and distal fibula fractures. Labs: WBC 9.1 HCT 38 Platelets 176 Cr 0.79 Impression and Plan: A 53-year-old female status post a fall with displaced distal left tibia fractures as well as a nondisplaced proximal and distal fibula fractures. These are closed injuries. Verbal consent was obtained for a gentle closed reduction and short-leg splint. This was then performed and she tolerated it well. I reduced the external rotation of the ankle and foot and placed her into a well-padded short leg plaster AO splint. She remained neurovascularly intact at her baseline afterwards. She found this much more comfortable after being splinted. We did discuss the diagnosis and treatment options at length. Given the displacement of the fractures, I do think she would benefit from open reduction and internal fixation. We will plan on moving forward with this when she is medically cleared. We did review the risks of both nonoperative and operative treatment at length. The risks of surgery were reviewed and careful detail. For now she will remain nonweightbearing in the left lower extremity with strict elevation. Pain control. DVT prophylaxis per medicine. Appreciate medical clearance. Ilya Miles MD
--- NOTE | 2019-02-11 15:48 | HP ---
HOSPITAL MEDICINE HISTORY AND PHYSICAL: DATE OF ADMISSION: 02/11/19 PRIMARY CARE PHYSICIAN: None. ATTENDING PHYSICIAN: Dr. Betty Mcfarlane * (dictation provided by Angela Mathew, YOUSIF ). CHIEF COMPLAINT: Left leg pain. HISTORY OF PRESENT ILLNESS: Ms. Jay is a 53-year-old female with a past medical history of hypertension, chronic pancreatitis and distant history of intracranial hemorrhage, who presents today to the hospital after a fall at home with complaint of left leg pain. Ms. Jay states that she has been in regular state of health. She has had no recent health complaints. She does note that she has not been taking her routine blood pressure medications. She believes that this medication is amlodipine, though she is not 100% sure. She does not have a primary care physician, but gets her refills and checkups at the [facility]. She has not been able to do that recently. In the setting of this, she has been having some weakness in bilateral knees. She describes intermittent buckling of the knees, from time to time she will fall with this, but has never resulted in an injury. On , she was in her kitchen when her knees buckled and she fell to the floor. She had immediate pain to the left leg. She thought it would resolve, but she has been since then unable to tolerate weightbearing on the left leg even with the use of her walker and ultimately decided to come to the emergency room for evaluation today. She denies any chest pain, shortness of breath, nausea, vomiting, diarrhea, abdominal pain. She states that this fall was mechanical and was not associated with loss of consciousness. She denies any headaches, vision changes, or any other symptom that she would attribute to uncontrolled hypertension. In the emergency room, Ms. Jay was confirmed to have a left tib-fib fracture described as a "comminuted spiral fracture through the distal shaft of the tibia with some external rotation of the distal fracture fragment foot; minimally displaced, obliquely oriented comminuted fracture of the proximal shaft of the fibula; a second minimally displaced, obliquely oriented fracture extends through the distal fibula at the level of the ankle mortise." The patient was seen by Dr. Miles from Orthopedic Surgery, who will be providing consultation and surgical support. Hospital Medicine was called regarding admission. PAST MEDICAL HISTORY: 1. Hypertension. 2. Anemia. 3. GERD. 4. History of intracranial hemorrhage. 5. History of peripheral neuropathy. 6. History of CKD. 7. History of appendectomy. 8. History of hysterectomy. 9. Chronic pancreatitis. MEDICATIONS OUTPATIENT: One available, the patient has been on amlodipine 10 mg p.o. daily in the past. She is not able to confirm this. ALLERGIES: To LATEX, MORPHINE, PIPERACILLIN and TAZOBACTAM. FAMILY HISTORY: The patient reports her mother had hypertension. Her dad related to complications of diabetes. Sister had a stroke and at 42 thought to be secondary to hypertension. SOCIAL HISTORY: The patient is not a smoker. She used to be a very heavy drinker, but only drinks alcohol occasionally now. No report of drug use. She lives alone, but her son checks on her and her son is the healthcare proxy. REVIEW OF SYSTEMS: A 14-point review of systems was completed with Ms. Jay and all those not mentioned above were negative. PHYSICAL EXAMINATION GENERAL: Ms. Jay is sitting up in the bed. She is in no acute distress. VITAL SIGNS: Temperature 97.3, pulse rate 110, respiratory rate 17, O2 saturation 93% on room air, blood pressure 183/118. LUNGS: Clear to auscultation bilaterally with no accessory muscle use and good aeration. HEART: S1, S2. No murmur, rub, or gallop and regular. ABDOMEN: Soft, nontender with bowel sounds positive x4. EXTREMITIES: No cyanosis or edema. The patient has cast placed to the left lower extremity. NEURO: She is alert. She is oriented x3. She moves all extremities equally. There is no facial asymmetry or focal weakness. SKIN: Intact. DIAGNOSTIC STUDIES/LAB DATA: WBC 9.1, hemoglobin 13.3, hematocrit 38, platelet count 176. INR 1.16. Sodium 142, potassium 3.4, chloride 106, serum bicarbonate 21, BUN 19, creatinine 0.79, glucose 106. Troponin 0.01. Ankle x-ray shows "complex mildly displaced distal tibial shaft fracture." Lower extremity x-ray shows complex mildly displaced fracture of the distal shaft of the tibia; minimally displaced, obliquely imaging fracture through the proximal shaft of the fibula. Femur x-ray shows no displaced fracture of the femur. The lower extremity CT is read as per above. EKG shows a sinus tachycardia with a heart rate about 110 with no evidence of ischemia. ASSESSMENT AND PLAN: Ms. Jay is a 53-year-old female with past medical history of hypertension, who presents today to the hospital after a fall at home with a left tibia-fibular fracture. Our plan will be for inpatient admission for the followin. Left tib-fib fracture. Management will be per Orthopedic Surgery. I have heard that the patient may be going to the OR as early as tomorrow. She has uncontrolled hypertension at this time, which we will work on as per below. She denies any chest pain or shortness of breath with her normal activities of daily living. Her activities are limited as she has had some weakness in her legs. She has no known coronary artery disease. Her EKG shows no evidence of current or previous ischemia. Though she needs better blood pressure control before going to the OR, no further cardiac testing is indicated. The patient will have oxycodone and Tylenol available p.r.n. for pain. 2. Uncontrolled hypertension. Plan to resume the patient's amlodipine. I will also resume a low dose of atenolol, which the patient has been in our record previously and adjust as necessary. I strongly encourage patient to seek follow up with nephrology for management of hypertension to avoid kidney injury. 3. Anion gap metabolic acidosis. The patient has had metabolic acidosis in the past with anion gap intermittently. She denies drinking alcohol. She denies vomiting or diarrhea. Lactic acid is pending, but she doesn't have a clear reason for lactic acidosis other than uncontrolled hypertension. She is not diabetic, so there is no risk for ketoacidosis. She denies aspirin or acetaminophen use. I question whether or not this is related to an underlying chronic kidney disease given her senior living history of hypertension. Plan to recheck labs in AM. 4. Hypokalemia. Plan to offer potassium supplementation and we will recheck in the a.m. 5. Code status is full code. TIME SPENT: Approximately 60 minutes was spent on the admission of this patient , more than half the time was spent with the patient at the bedside reviewing the events leading up to this hospitalization, performing the physical examination, and reviewing my plan of care. ANGELA MATHEW NP [id number]/[facility] #: [id number] RENAE
[2019-02-11] MEDS: amLODIPine TAB* 5 MG PO SCH (15:54)
[2019-02-11] MEDS: oxyCODONE/Acetamin 5/325 MG* TAB PO PRN (15:55)
[2019-02-11] MEDS ORDERED: hydrALAZINE IV* 20 MG/ML VIAL IV SLOW PU PRN (18:34)
[2019-02-11] MEDS ORDERED: Atenolol TAB* 25 MG PO ONE (18:35)
[2019-02-11 23:44] LABS: Urine Appearance Clear; Urine Bilirubin Negative (Negative); Urine Blood Negative (Negative); Urine Color Yellow; Urine Glucose Negative (Negative); Urine Ketones Negative (Negative); Urine Nitrite Negative (Negative); Urine Protein Negative (Negative); Urine Specific Gravity 1.016 (1.010-1.030); Urine Urobilinogen Negative (Negative)
[2019-02-12] MEDS: oxyCODONE/Acetamin 5/325 MG* TAB PO PRN ×2 (03:56→18:49)
[2019-02-12] MEDS ORDERED: Famotidine IV* 10 MG/ML 2 ML (20 mg) IV ONE (06:00)
[2019-02-12] MEDS ORDERED: fentaNYL* 50 MCG/ML 2 ML VIAL (100 MCG VIAL) ONE ×2 (07:45→08:42)
[2019-02-12] MEDS ORDERED: Midazolam* 1 MG/ML 5 ML VIAL (5 MG) ONE (07:45)
[2019-02-12] MEDS ORDERED: ceFAZolin 2 GM in NS PREMIX(*) 2 GM/100 ML BAG IVPB ONE (08:13)
[2019-02-12] MEDS ORDERED: Bupivacaine 0.5%* 50 ML MDV VIAL ONE (08:57)
[2019-02-12] MEDS ORDERED: fentaNYL* 50 MCG/ML 2 ML VIAL (100 MCG VIAL) IV PRN (09:07)
[2019-02-12] MEDS ORDERED: DiMENhydriNATE IV* 50 MG/ML VIAL IV PUSH PRN (09:07)
[2019-02-12] MEDS ORDERED: Naloxone* 0.4 MG/ML 1 ML VIAL IV PRN (09:07)
[2019-02-12] MEDS ORDERED: HYDROmorphone INJ1* 1 MG/ML SYRINGE IV PRN (09:07)
[2019-02-12] MEDS ORDERED: PROCHLORPERAZINE INJ 5 MG/ML 2 ML VIAL IV PRN (09:07)
[2019-02-12] MEDS ORDERED: Propofol* 10 MG/ML 20 ML BTL ONE (09:12)
[2019-02-12] MEDS ORDERED: Metoprolol Tartrate IV* 1 MG/ML 5 ML VIAL ONE (09:12)
[2019-02-12] MEDS ORDERED: Dexamethasone IV* 4 MG/ML 1 ML (4 MG) ONE (09:12)
[2019-02-12] MEDS ORDERED: Lidocaine 2% PF * 5 ML VIAL ONE (09:12)
[2019-02-12] MEDS ORDERED: Ondansetron INJ* 2 MG/ML VIAL ONE (09:12)
[2019-02-12] MEDS ORDERED: hydrALAZINE IV* 20 MG/ML VIAL ONE (09:12)
[2019-02-12] MEDS ORDERED: HYDROmorphone INJ1* 1 MG/ML SYRINGE ONE ×2 (09:14→10:24)
[2019-02-12] MEDS ORDERED: Phenylephrine 40 MCG/ML SYRINGE ONE (09:27)
[2019-02-12] MEDS ORDERED: Acetaminophen IV 1GM/100ML * 100 ML ONE (09:38)
[2019-02-12] MEDS ORDERED: Labetalol IV* 5 MG/ML 20 ML VIAL ONE (09:51)
[2019-02-12] MEDS ORDERED: oxyCODONE TAB* 5 MG TAB ONE (10:16)
[2019-02-12] MEDS: oxyCODONE TAB* 5 MG TAB PO PRN ×2 (10:18→10:19)
--- NOTE | 2019-02-12 10:31 | OP ---
Operative Report - Blank - Operative Report Date of Operation: 02/12/19 Note: PATIENT: Peggy Jay DATE OF : 1965 DATE OF SURGERY: 02/12/2019 SURGEON: Ilya Miles MD [employer] SUPERVISOR: HALEIGH Dumas, whos assistance was necessary for positioning, retraction, help with instrumentation, and closure. ANESTHESIOLOGIST: Dr. Fitzpatrick PREOPERATIVE DIAGNOSIS: Left distal tibia shaft fracture. Left proximal fibula fracture. Left distal fibula fracture. POSTOPERATIVE DIAGNOSIS: Left distal tibia shaft fracture. Left proximal fibula fracture. Left distal fibula fracture. OPERATION: Left tibia fracture open reduction and internal fixation. Closed treatment of left proximal and distal fibular fractures. ANESTHESIA: General IMPLANTS: Synthes distal medial tibial plate and screws TOURNIQUET TIME: 1 hour with a well-padded thigh tourniquet at 250mmHg SPECIMENS: none ESTIMATED BLOOD LOSS: minimal COMPLICATIONS: none STATUS: Stable from the operating room to the recovery room and then to the hospital floor. INDICATIONS FOR PROCEDURE: Peggy sustained closed left lower leg fractures. Both operative and non- operative treatment alternatives were reviewed. Further, the nature and risks of surgery were reviewed in careful detail. Our discussions regarding the risks of surgery included, but were not limited to, infection, wound problems, nerve injury, neuroma, RSD, persistent symptoms, nonunion, malunion, hardware failure , blood clot, need for further surgery, failure of the surgery, and even the remote chance of catastrophic complication, including loss of limb. DESCRIPTION OF PROCEDURE: The patient was seen in the preoperative holding unit and informed written consent was obtained. The appropriate extremity was marked. The patient was then brought to the operating room and carefully positioned on the operating room table. Anesthesia was induced. All bony prominences were padded with great care. A well-padded thigh tourniquet was placed. A chlorhexidine based pre- scrub was performed followed by a chloraprep prep and drape in standard sterile fashion. A surgical safety pause was then conducted in which we confirmed the appropriate patient, extremity, planned procedure, availability of equipment, indication and administration of prophylactic antibiotics, and DVT prophylaxis in the form of a compression boot on the non-surgical extremity. I performed an Esmarch exsanguination of the limb, and the tourniquet was inflated. I made a longitudinal incision at the site of the fracture and used a reduction clamp and axial traction to reduce the fracture. This was confirmed fluoroscopically. I then placed 3 interfragmentary lag screws across the fracture site, which did not have excellent purchase. The provisional reduction clamp was then removed and the fracture was held well reduced. I then made a longitudinal incision over the medial malleolus. A James was used to make a path for a medial sided tibial plate proximally. A Synthes distal medial tibial plate was then slid up the tibia and a retrograde fashion. Placement was confirmed fluoroscopically. A nonlocking cortical screw was then placed in the oblong hole to compress the plate down to bone. Proximal nonlocking cortical screws were placed in a percutaneous fashion. Distally, locking screws were placed. Fluoroscopy was used throughout to confirm placement of the plate and screws. I used fluoroscopy to image the proximal fibula fracture, which remained in good alignment and minimally displaced. I decided to treat this in a closed manner. I then imaged the ankle and the distal fibula fracture was also in good alignment and nondisplaced. I performed external rotation stress testing of the ankle and there was no widening of the mortise or syndesmosis. I decided to treat the distal fibular fracture in a closed manner as well. The wounds were copiously irrigated and closed in a layered fashion utilizing 3- 0 Monocryl suture and skin pamela. A well-padded AO plaster splint was placed with the ankle in a neutral position. The patient was then awakened from anesthesia and transferred to the recovery room in stable condition. There were no complications. All needle and sponge counts were correct at the end of the case. ATTESTATION: I attest I was present and scrubbed and performed the critical portions of the procedure myself. POSTOPERATIVE PLAN: The plan is NWB in the operative extremity. Follow-up in 2 weeks for staple removal. The plan is for Lovenox for DVT prophylaxis for 1 month if ok with the medical service.
[2019-02-12] MEDS: Atenolol TAB* 25 MG PO SCH (12:51)
[2019-02-12] MEDS: amLODIPine TAB* 5 MG PO SCH (12:51)
[2019-02-12 12:56] LABS: Calcium 8.1 mg/dL (8.6-10.3); Chloride 108 mmol/L (101-111); Sodium 133 mmol/L (135-145)
[2019-02-12 13:01] LABS: BUN/Creatinine Ratio 19.2 (8-20); Blood Urea Nitrogen 15 mg/dL (6-24); EGFR African American 93.5 (>60); EGFR Non-African American 77.3 (>60); Glucose 148 mg/dL (70-100)
[2019-02-12 13:07] LABS: Anion Gap 11 mmol/L (2-11); CO2 Carbon Dioxide 14 mmol/L (22-32)
--- NOTE | 2019-02-12 13:15 | PN ---
Subjective Date of Service: 02/12/19 Interval History: Doing s/p surgery this am.Doing well.No complaints.Wants to eat Objective Active Medications: Acetaminophen (Tylenol Tab*) 650 mg PO Q6H PRN PRN Reason: PAIN - MILD Amlodipine Besylate (Norvasc Tab*) 10 mg PO DAILY [facility] Last Admin: 02/12/19 12:51 Dose: 10 mg Atenolol (Tenormin Tab*) 25 mg PO DAILY [facility] Last Admin: 02/12/19 12:51 Dose: 25 mg Dimenhydrinate (Dramamine Iv*) 12.5 mg IV PUSH ONCE PRN PRN Reason: NAUSEA/VOMITING Fentanyl Citrate (Fentanyl*) 25 mcg IV Q5M PRN PRN Reason: PAIN - MODERATE Hydralazine HCl (Apresoline Iv*) 5 mg IV SLOW PU Q6H PRN PRN Reason: SBP > 180 or DBP > 110 Hydromorphone HCl (Dilaudid Inj1s*) 0.2 mg IV Q5M PRN PRN Reason: PAIN - SEVERE Last Admin: 02/12/19 10:29 Dose: 0.2 mg Naloxone HCl (Narcan*) 0.08 mg IV Q2M PRN PRN Reason: severe induced resp depression Ondansetron HCl (Zofran Inj*) 4 mg IV Q6H PRN PRN Reason: NAUSEA Oxycodone HCl (Roxycodone Tab*) 5 mg PO ONCE PRN PRN Reason: PAIN - MODERATE Last Admin: 02/12/19 10:19 Dose: 5 mg Oxycodone/Acetaminophen (Percocet 5/325 Tab*) 1 tab PO Q4H PRN PRN Reason: PAIN - MODERATE Last Admin: 02/12/19 03:56 Dose: 1 tab Oxycodone/Acetaminophen (Percocet 5/325 Tab*) 2 tab PO Q4H PRN PRN Reason: PAIN - SEVERE Prochlorperazine Edisylate (Compazine Inj*) 5 mg IV ONCE PRN PRN Reason: NAUSEA/VOMITING Vital Signs - 8 hr 02/12/19 02/12/19 02/12/19 07:41 07:42 07:45 Temperature 97.7 F Pulse Rate 82 Respiratory 14 14 14 Rate Blood Pressure 147/96 (mmHg) O2 Sat by Pulse 100 Oximetry 02/12/19 02/12/19 02/12/19 10:04 10:05 10:06 Temperature Pulse Rate 102 100 102 Respiratory 17 Rate Blood Pressure 150/104 149/111 (mmHg) O2 Sat by Pulse 100 100 99 Oximetry 02/12/19 02/12/19 02/12/19 10:09 10:10 10:15 Temperature 97.9 F Pulse Rate 98 96 Respiratory 16 13 14 Rate Blood Pressure 148/104 142/100 (mmHg) O2 Sat by Pulse 99 96 Oximetry 02/12/19 02/12/19 02/12/19 10:18 10:19 10:20 Temperature Pulse Rate 101 Respiratory 12 12 17 Rate Blood Pressure 146/105 (mmHg) O2 Sat by Pulse 94 Oximetry 02/12/19 02/12/19 02/12/19 10:21 10:25 10:29 Temperature Pulse Rate 94 Respiratory 12 10 11 Rate Blood Pressure 158/105 (mmHg) O2 Sat by Pulse 96 Oximetry 02/12/19 02/12/19 02/12/19 10:30 10:31 10:32 Temperature Pulse Rate 93 95 Respiratory 14 11 16 Rate Blood Pressure 135/101 128/81 (mmHg) O2 Sat by Pulse 96 97 Oximetry 02/12/19 02/12/19 10:50 12:51 Temperature Pulse Rate Respiratory 11 14 Rate Blood Pressure (mmHg) O2 Sat by Pulse Oximetry Oxygen Devices in Use Now: Nasal Cannula Eyes: No Scleral Icterus Ears/Nose/Mouth/Throat: NL Teeth, Lips, Gums Neck: NL Appearance and Movements; NL JVP Respiratory: Symmetrical Chest Expansion and Respiratory Effort, Clear to Auscultation Cardiovascular: NL Sounds; No Murmurs; No JVD Abdominal: NL Sounds; No Tenderness; No Distention Extremities: - - L LE in cast Result Diagrams: 02/11/19 11:26 02/12/19 12:40 Assess/Plan/Problems-Billing Assessment: - Patient Problems (1) Tibial fracture Current Visit: Yes Status: Acute Code(s): S82.209A - UNSP FRACTURE OF SHAFT OF UNSP TIBIA, INIT FOR CLOS FX SNOMED Code(s): 33360196 Comment: L tib fx s/p ORIF this am 02/12/19 No complications Doing well post op Appreciate ortho input (2) Left fibular fracture Current Visit: Yes Status: Acute Code(s): S82.402A - UNSP FRACTURE OF SHAFT OF LEFT FIBULA, INIT FOR CLOS FX SNOMED Code(s): 17222753 Comment: Closed rx of L proximal and distal fib fx this am (3) Hypertension Current Visit: Yes Status: Acute Code(s): I10 - ESSENTIAL (PRIMARY) HYPERTENSION SNOMED Code(s): 87555540 Comment: [facility] bp in the 200s initially partially from pain as well started on amlodipine and atenolol ( home dose increased) bp in 150s this am will monitor bp with meds (4) Hypokalemia Current Visit: Yes Status: Acute Code(s): E87.6 - HYPOKALEMIA SNOMED Code( s): 90709058 Comment: kelly k
[2019-02-12 13:42] LABS: ABS Lymphocytes 0.6 10^3/ul (1.0-4.8); ABS Monocytes 0.1 10^3/ul (0-0.8); ABS Neutrophils 8.2 10^3/ul (1.5-7.7); Eosinophil % 0.1 %; Hematocrit 37 % (35-47); Hemoglobin 12.6 g/dL (12.0-16.0); Lymphocyte % 7.1 %; Mean Corpuscular HGB Conc 34 g/dL (31-36); Mean Corpuscular Hemoglobin 30 pg (27-31); Mean Corpuscular Volume 87 fL (80-97); Mean Platelet Volume 8.2 fL (7.4-10.4); Platelet Count 141 10^3/uL (150-450); Red Blood Count 4.24 10^6 /uL (3.70-4.87); Red Cell Distribution Width 14 % (10-15); White Blood Count 8.9 10^3/uL (3.5-10.8)
[2019-02-12 13:57] LABS: BUN/Creatinine Ratio 18.8 (8-20); Calcium 8.7 mg/dL (8.6-10.3); EGFR African American 90.8 (>60); Potassium 4.2 mmol/L (3.5-5.0)
[2019-02-12] MEDS: ceFAZolin 1 GM in Dextrose (*) 1 GM/50 ML BAG IVPB SCH (19:47)
[2019-02-12] MEDS ORDERED: Polyethylene Glycol 3350* 17 GM PACKET ONE (20:22)
[2019-02-12] MEDS: Polyethylene Glycol 3350* 17 GM PACKET PO PRN (20:31)
[2019-02-13] MEDS: ceFAZolin 1 GM in Dextrose (*) 1 GM/50 ML BAG IVPB SCH ×2 (02:59→12:37)
[2019-02-13] MEDS: oxyCODONE/Acetamin 5/325 MG* TAB PO PRN ×4 (03:43→19:33)
[2019-02-13 06:18] LABS: ABS Lymphocytes 1.2 10^3/ul (1.0-4.8); ABS Monocytes 0.4 10^3/ul (0-0.8); ABS Neutrophils 7.1 10^3/ul (1.5-7.7); Eosinophil % 0.3 %; Hematocrit 35 % (35-47); Hemoglobin 11.6 g/dL (12.0-16.0); Lymphocyte % 13.3 %; Mean Corpuscular HGB Conc 34 g/dL (31-36); Mean Corpuscular Hemoglobin 30 pg (27-31); Mean Corpuscular Volume 88 fL (80-97); Mean Platelet Volume 7.8 fL (7.4-10.4); Platelet Count 169 10^3/uL (150-450); Red Blood Count 3.91 10^6 /uL (3.70-4.87); Red Cell Distribution Width 14 % (10-15); White Blood Count 8.7 10^3/uL (3.5-10.8)
[2019-02-13 06:42] LABS: Calcium 8.6 mg/dL (8.6-10.3); Potassium 4.3 mmol/L (3.5-5.0)
[2019-02-13 06:48] LABS: BUN/Creatinine Ratio 24.2 (8-20); EGFR African American 78.2 (>60); EGFR Non-African American 64.7 (>60)
[2019-02-13] MEDS: Atenolol TAB* 25 MG PO SCH (08:16)
[2019-02-13] MEDS: amLODIPine TAB* 5 MG PO SCH (08:16)
[2019-02-13] MEDS: Enoxaparin(*) 40 MG/0.4 ML SYR SUBCUT SCH (08:17)
--- NOTE | 2019-02-13 11:30 | PN ---
Progress Note - Progress Note Date of Service: 02/13/19 SOAP: Subjective: [Pt was seen sitting up in chair. Concerned about lack of bowel movement but reassured by the ability to pass flatulence. She states that she is doing much better than she was when she arrived. She denies any chest pain, SOB, Nausea or vomiting. ] Objective: [General: Pt is alert and oriented x3. NAD MSK, LLE: Dressing is c/d/i. Sensation intact to light touch in all exposed digits, less than 2 second cap refill. ] Vital Signs Temp 97.4 F 02/13/19 07:51 Pulse 83 02/13/19 07:51 Resp 16 02/13/19 11:29 BP 122/80 02/13/19 07:51 Pulse Ox 100 02/13/19 08:00 Intake & Output 02/12/19 02/13/19 02/13/19 18:59 06:59 18:59 Intake Total 1400 130 360 Output Total 375 450 Balance 1025 -320 360 Intake: IV Fluids 800 130 ABX - CEFAZOLIN 110 LR 800 NS (0.9%) 20 Oral 600 0 360 Output: Urine 150 450 De Jesus 225 Other: Estimated Void Medium Assessment: [POD 1 Left tibia fracture open reduction and internal fixation. Closed treatment of left proximal and distal fibular fractures.] Plan: [NWB left lower extremity Lovenox x 1 month Follow up with Dr. Miles in 2 weeks for suture removal. Continue with pain medication Continue with colace to help stimulate bowel movement]
[2019-02-13] MEDS ORDERED: Magnesium Hydroxide LIQ* 30 ML UDC PO PRN (15:37)
--- NOTE | 2019-02-13 16:08 | PN ---
Subjective Date of Service: 02/13/19 Interval History: Patient states pain in LT lower leg has improved. She understands she is NWB for 1 month, needs PERLA. She can use commode, walk w/ RT leg and walker. No BM in >3 days Family History: Unchanged from Admission Social History: Unchanged from Admission Past Medical History: Unchanged from Admission Objective Active Medications: Acetaminophen (Tylenol Tab*) 650 mg PO Q6H PRN PRN Reason: PAIN - MILD Amlodipine Besylate (Norvasc Tab*) 10 mg PO DAILY [facility] Last Admin: 02/13/19 08:16 Dose: 10 mg Atenolol (Tenormin Tab*) 25 mg PO DAILY [facility] Last Admin: 02/13/19 08:16 Dose: 25 mg Enoxaparin Sodium (Lovenox(*)) 40 mg SUBCUT Q24H [facility] Last Admin: 02/13/19 08:17 Dose: 40 mg Hydralazine HCl (Apresoline Iv*) 5 mg IV SLOW PU Q6H PRN PRN Reason: SBP > 180 or DBP > 110 Magnesium Hydroxide (Milk Of Magnmacy Liq*) 30 ml PO Q6H PRN PRN Reason: CONSTIPATION Ondansetron HCl (Zofran Inj*) 4 mg IV Q6H PRN PRN Reason: NAUSEA Oxycodone/Acetaminophen (Percocet 5/325 Tab*) 1 tab PO Q4H PRN PRN Reason: PAIN - MODERATE Last Admin: 02/13/19 08:16 Dose: 1 tab Oxycodone/Acetaminophen (Percocet 5/325 Tab*) 2 tab PO Q4H PRN PRN Reason: PAIN - SEVERE Last Admin: 02/13/19 13:05 Dose: 2 tab Polyethylene Glycol/Electrolytes (Miralax*) 17 gm PO DAILY PRN PRN Reason: CONSTIPATION Last Admin: 02/12/19 20:31 Dose: 17 gm Vital Signs - 8 hr 02/13/19 02/13/19 02/13/19 08:16 11:15 11:29 Temperature 36.2 C Pulse Rate 80 Respiratory 18 20 16 Rate Blood Pressure 129/90 (mmHg) O2 Sat by Pulse 100 Oximetry 02/13/19 02/13/19 13:05 15:15 Temperature 36.2 C Pulse Rate 80 Respiratory 18 20 Rate Blood Pressure 114/79 (mmHg) O2 Sat by Pulse 94 Oximetry Oxygen Devices in Use Now: None Appearance: alert, no distress Eyes: No Scleral Icterus Neck: NL Appearance and Movements; NL JVP Respiratory: Symmetrical Chest Expansion and Respiratory Effort, Clear to Auscultation Cardiovascular: NL Sounds; No Murmurs; No JVD Abdominal: NL Sounds; No Tenderness; No Distention Lymphatic: No Cervical Adenopathy Extremities: - - LLE in bandage/cast Lines/Tubes/Other Access: Clean, Dry and Intact Peripheral IV Nutrition: Taking PO's Result Diagrams: 02/13/19 06:02 02/13/19 06:10 Assess/Plan/Problems-Billing Assessment: 53 yo woman with LEFT tib/fib fracture, hypertension - Patient Problems (1) Fracture of left tibia and fibula Current Visit: Yes Status: Acute Priority: High Code(s): S82.202A - UNSP FRACTURE OF SHAFT OF LEFT TIBIA, INIT FOR CLOS FX; S82.402A - UNSP FRACTURE OF SHAFT OF LEFT FIBULA, INIT FOR CLOS FX SNOMED Code(s): 31733129 Comment: -POD 1, management per orthopedics -Will need STR, non-WB for 1 month -Lovenox SC daily for 1 month (2) Hypertension Current Visit: Yes Status: Acute Priority: Medium Code(s): I10 - ESSENTIAL (PRIMARY) HYPERTENSION SNOMED Code(s): 38244632 Comment: -started on amlodipine and atenolol ( home dose increased) -BP in goal range -will monitor bp with meds (3) DVT prophylaxis Current Visit: No Status: Chronic Priority: Low Code(s): GQC3735 - SNOMED Code(s): 213581110 Comment: -Lovenox Status and Disposition: inpatient, planning for STR
[2019-02-13] MEDS: Polyethylene Glycol 3350* 17 GM PACKET PO PRN (19:32)
[2019-02-14] MEDS: oxyCODONE/Acetamin 5/325 MG* TAB PO PRN ×2 (04:06→10:32)
--- NOTE | 2019-02-14 10:24 | PN ---
Progress Note - Progress Note Date of Service: 02/14/19 SOAP: Subjective: []Pt seen at bedside. LLE pain well controlled though complains her foot is turned out. Denies CP, SOB, dizziness, nausea. Objective: []Gen: NAD, appears well LLE: Splint CDI, ankle at 90 degrees, there is some external rotation. f/e MTPs intact, sensation intact to light touch distally, capillary refill less than two seconds distally Assessment: [] POD 2 Left tibia fracture open reduction and internal fixation. Closed treatment of left proximal and distal fibular fractures.] Plan: [NWB left lower extremity Keep splint CDI Lovenox x 1 month post op Follow up with Dr. Miles in 2 weeks for suture removal. Todays xrays show intact hardware, satisfactory reduction of fractures New well padded lower leg splint placed with ankle in neutral position. Patient confirms comfort and pleased with appearance of alignment. Vital Signs Temp 97.1 F 02/14/19 07:40 Pulse 77 02/14/19 07:40 Resp 20 02/14/19 07:40 BP 142/92 02/14/19 07:40 Pulse Ox 100 02/14/19 07:40 Intake & Output 02/13/19 02/14/19 02/14/19 18:59 06:59 18:59 Intake Total 890 0 Output Total 300 100 Balance 590 0 -100 Intake: IVPB 50 ABX - CEFAZOLIN 50 Oral 840 0 Output: Urine 0 100 De Jesus 300 Other: # Voids 3 Laboratory Last Values WBC 8.7 10^3/uL (3.5-10.8) 02/13/19 06:02 RBC 3.91 10^6 /uL (3.70-4.87) 02/13/19 06:02 Hgb 11.6 g/dL (12.0-16.0) L 02/13/19 06:02 Hct 35 % (35-47) 02/13/19 06:02 MCV 88 fL (80-97) 02/13/19 06:02 MCH 30 pg (27-31) 02/13/19 06:02 MCHC 34 g/dL (31-36) 02/13/19 06:02 RDW 14 % (10-15) 02/13/19 06:02 Plt Count 169 10^3/uL (150-450) 02/13/19 06:02 MPV 7.8 fL (7.4-10.4) 02/13/19 06:02 Neut % (Auto) 82.1 % 02/13/19 06:02 Lymph % (Auto) 13.3 % 02/13/19 06:02 [place] % (Auto) 4.1 % 02/13/19 06:02 Eos % (Auto) 0.3 % 02/13/19 06:02 Baso % (Auto) 0.2 % 02/13/19 06:02 Absolute Neuts (auto) 7.1 10^3/ul (1.5-7.7) 02/13/19 06:02 Absolute Lymphs (auto) 1.2 10^3/ul (1.0-4.8) 02/13/19 06:02 Absolute Monos (auto) 0.4 10^3/ul (0-0.8) 02/13/19 06:02 Absolute Eos (auto) 0.0 10^3/ul (0-0.6) 02/13/19 06:02 Absolute Basos (auto) 0.0 10^3/ul (0-0.2) 02/13/19 06:02 Absolute Nucleated RBC 0.0 10^3/ul 02/13/19 06:02 Nucleated RBC % 0.0 02/13/19 06:02 INR (Anticoag Therapy) 1.16 (0.82-1.09) H 02/11/19 13:09 APTT 36.8 seconds (26.0-38.0) 02/11/19 13:09 Sodium 137 mmol/L (135-145) 02/13/19 06:10 Potassium 4.3 mmol/L (3.5-5.0) 02/13/19 06:10 Chloride 107 mmol/L (101-111) 02/13/19 06:10 Carbon Dioxide 21 mmol/L (22-32) L 02/13/19 06:10 Anion Gap 9 mmol/L (2-11) 02/13/19 06:10 BUN 22 mg/dL (6-24) 02/13/19 06:10 Creatinine 0.91 mg/dL (0.51-0.95) 02/13/19 06:10 Est GFR ( Amer) 78.2 (>60) 02/13/19 06:10 Est GFR (Non-Af Amer) 64.7 (>60) 02/13/19 06:10 BUN/Creatinine Ratio 24.2 (8-20) H 02/13/19 06:10 Glucose 133 mg/dL (70-100) H 02/13/19 06:10 Lactic Acid 0.8 mmol/L (0.5-2.0) 02/11/19 19:02 Calcium 8.6 mg/dL (8.6-10.3) 02/13/19 06:10 Total Bilirubin 0.90 mg/dL (0.2-1.0) 02/11/19 11:26 AST 35 U/L (13-39) 02/11/19 11:26 ALT 56 U/L (7-52) H 02/11/19 11:26 Alkaline Phosphatase 92 U/L (34-104) 02/11/19 11:26 Total Creatine Kinase 142 U/L (10-223) 02/11/19 11:26 Troponin I 0.01 ng/mL (<0.03) 02/11/19 13:09 Total Protein 8.7 g/dL (6.4-8.9) 02/11/19 11:26 Albumin 4.5 g/dL (3.2-5.2) 02/11/19 11:26 Globulin 4.2 g/dL (2-4) H 02/11/19 11:26 Albumin/Globulin Ratio 1.1 (1-3) 02/11/19 11:26 Urine Color Yellow 02/11/19 23:20 Urine Appearance Clear 02/11/19 23:20 Urine pH 5.0 (5-9) 02/11/19 23:20 Ur Specific [place] 1.016 (1.010-1.030) 02/11/19 23:20 Urine Protein Negative (Negative) 02/11/19 23:20 Urine Ketones Negative (Negative) 02/11/19 23:20 Urine Blood Negative (Negative) 02/11/19 23:20 Urine Nitrate Negative (Negative) 02/11/19 23:20 Urine Bilirubin Negative (Negative) 02/11/19 23:20 Urine Urobilinogen Negative (Negative) 02/11/19 23:20 Ur Leukocyte Esterase Negative (Negative) 02/11/19 23:20 Urine Glucose Negative (Negative) 02/11/19 23:20
[2019-02-14] MEDS: amLODIPine TAB* 5 MG PO SCH (10:28)
[2019-02-14] MEDS: Enoxaparin(*) 40 MG/0.4 ML SYR SUBCUT SCH (10:28)
[2019-02-14] MEDS: Atenolol TAB* 25 MG PO SCH (10:28)
--- NOTE | 2019-02-14 14:28 | TRS ---
DATE OF ADMISSION: 02/11/2019. DATE OF TRANSFER: 02/14/2019. PRIMARY DIAGNOSIS: Left tibia and fibular fracture through the distal shaft of the tibia. SECONDARY DIAGNOSES: Hypertension, GERD, history of anemia, history of intracranial hemorrhage, emma pheral neuropathy, hypokalemia. MEDICATIONS ON DISCHARGE: 1. Amlodipine 10 mg p.o. daily. 2. Acetaminophen as needed. 3. Atenolol 25 mg p.o. daily. 4. Enoxaparin 40 mg subcutaneous q.24 hours for 4 weeks. 5. Magnesium Hydroxide liquid 30 ml q.6 hours prn constipation. 6. MiraLax 17 gm mixed with water p.o. daily. 7. Oxycodone 5/325 one tab p.o. q.4 hours prn pain. CONSULTATIONS: Dr. Miles of Orthopedics. PROCEDURE: On February 12, the patient had a left tibia fracture open reduction internal fixation a nd closed treatment of the left proximal and distal fibular fractures. Complications: None. HOSPITAL COURSE: This 53-year-old woman with a history of disability from previous intracranial hemo rrhage had a fall at home in the kitchen where her knees buckled and she fell to the floor. She did not have syncope or new head injury. The patient was seen in the emergency department and had accele rated hypertension with a blood pressure of 183/118. She was admitted to the hospital and medically stabilized with additional beta blockers and Hydralazine as well as her outpatient Norvasc, and blood pressure was tolerable on the day after admission and she was cleared for surgery. The patient had the operation without any complications and was followed by Orthopedic Surgery through the [facility]. The advice from surgery is to see Dr. Miles in two weeks after the surgery around the February for suture removal and recheck. They also recommended one month of Lovenox due to high ri sk of DVT. The patient worked with Physical Therapy and was able to get up bearingly on her right le g without using a walker without assist. She is nonweightbearing of the left lower extremity for one month. The patient also had hypokalemia on admission and a potassium of 3.4. This was supplemented and rech ecked, and her potassium on discharge is 4.3. She has minimally elevated liver enzymes, ALT of 56. PERTINENT STUDIES IN THE HOSPITAL: 1. February 11 lower extremity x-ray showed minimally displaced oblique fracture through the proxi mal shaft of the fibula and a mildly displaced fracture of the distal shaft of the tibia. 2. Femur x-ray on February 11 showed no fracture of the femur. 3. Ankle was also imaged February 11 with no other fractures. 4. CT of the lower extremity confirmed the above findings of two fractures in the fibula and one fra cture in the tibia. 5. Postop films were taken and showed good approximation of the bones and the hardware in proper alison ce. DISPOSITION: To [facility] for subacute rehab. DIET: Low salt. ACTIVITY: Nonweightbearing in the left lower extremity. Walk with a walker and progress to crutches with weightbearing on the right lower extremity. STATUS: Inpatient. CONDITION ON DISCHARGE: Stable. FOLLOW-UP: Follow-up with Dr. Miles as above. The patient needs to establish a primary care doct or before discharge from the assisted. We suggest she go to the [facility], [phone], for primary care. TIME SPENT: I spent more than 35 minutes with the patient today and completed the necessary paperwor k for discharge. [id number]/CPS #: [id number]
[2019-02-14 16:28] VITALS: BP 134/92
== END 2019-02-14 16:30 | DRG 493 ==
LOC: ED 10:45 → MEDTELE 13:56
PROVIDERS: ADMIT Internal Medicine; ATTEND Internal Medicine
PROC: 0QSKXZZ Reposition Left Fibula, External Approach (ICD-10-PCS; 2019-02-12)
PROC: 0QSH04Z Reposition Left Tibia with Internal Fixation Device, Open Approach (ICD-10-PCS; principal; 2019-02-12 08:00)
DX: S82.402A Unspecified fracture of shaft of left fibula, initial encounter for closed fracture (principal); K86.1 Other chronic pancreatitis; E87.2 Acidosis; S82.202A Unspecified fracture of shaft of left tibia, initial encounter for closed fracture; G62.9 Polyneuropathy, unspecified; I12.9 Hypertensive chronic kidney disease with stage 1 through stage 4 chronic kidney disease, or unspecified chronic kidney disease; N18.9 Chronic kidney disease, unspecified; K21.9 Gastro-esophageal reflux disease without esophagitis; E87.6 Hypokalemia; W18.30XA Fall on same level, unspecified, initial encounter; Y93.9 Activity, unspecified; Y92.000 Kitchen of unspecified non-institutional (private) residence as the place of occurrence of the external cause; Z86.73 Personal history of transient ischemic attack (TIA), and cerebral infarction without residual deficits; Z79.899 Other long term (current) drug therapy; Z88.5 Allergy status to narcotic agent; Z88.8 Allergy status to other drugs, medicaments and biological substances; Z88.1 Allergy status to other antibiotic agents; Z91.040 Latex allergy status; Z82.49 Family history of ischemic heart disease and other diseases of the circulatory system; Z83.3 Family history of diabetes mellitus; Z82.3 Family history of stroke
CPT/HCPCS: 36415; 76000; 80048; 80053; 81003; 82550; 83605; 84484; 85025; 85610; 85730; 93005; 96374; 96375; 96376; 99283; A9270-GY; G8978-GP-CK; G8979-GP-CI; G8987-GO-CK; G8988-GO-CI; J0360; J0690; J1100; J1170; J1650; J2250; J2405; J2704; J3010; J3490

== ENCOUNTER 2019-07-11 09:54 | Emergency (ER) | payer MEDICARE, MEDICAID ==
[2019-07-11] MEDS ORDERED: NS 0.9% 1000 ml BAG 1,000 ML IV ONE ×2 (10:01→10:04)
[2019-07-11] MEDS ORDERED: Labetalol IV 5 MG/ML 20 ml VIAL IV PUSH ONE ×2 (10:03→12:27)
[2019-07-11] MEDS ORDERED: fentaNYL 100 mcg/2 ml 50 MCG/ML VIAL IV SLOW PU ONE ×2 (10:04→11:18)
[2019-07-11] MEDS ORDERED: Ondansetron 4 mg VIAL 2 MG/ML 2 ml VIAL IV ONE (10:04)
[2019-07-11 10:30] LABS: ABS Lymphocytes 1.4 10^3/ul (1.0-4.8); ABS Monocytes 0.3 10^3/ul (0-0.8); Hematocrit 39 % (35-47); Hemoglobin 13.4 g/dL (12.0-16.0); Lymphocyte % 16.5 %; Mean Corpuscular HGB Conc 34 g/dL (31-36); Mean Corpuscular Hemoglobin 29 pg (27-31); Mean Corpuscular Volume 86 fL (80-97); Mean Platelet Volume 7.1 fL (7.4-10.4); Nucleated Red Blood Cells % 0.2; Platelet Count 202 10^3/uL (150-450); Red Blood Count 4.58 10^6 /uL (3.70-4.87); Red Cell Distribution Width 19 % (10-15); White Blood Count 8.5 10^3/uL (3.5-10.8)
[2019-07-11 10:37] LABS: Activated Partial Thrombo Time 30.4 seconds (26.0-38.0); INR 1.09 (0.82-1.09)
[2019-07-11 10:43] LABS: ALT 50 U/L (7-52); AST 54 U/L (13-39); Albumin 4.4 g/dL (3.2-5.2); Alkaline Phosphatase 101 U/L (34-104); Anion Gap 13 mmol/L (2-11); BUN/Creatinine Ratio 18.3 (8-20); Blood Urea Nitrogen 19 mg/dL (6-24); CO2 Carbon Dioxide 18 mmol/L (22-32); Calcium 9.6 mg/dL (8.6-10.3); Chloride 108 mmol/L (101-111); Creatine Kinase 1102 U/L (10-223); EGFR African American 67.1 (>60); EGFR Non-African American 55.4 (>60); Globulin 4.3 g/dL (2-4); Glucose 128 mg/dL (70-100); Magnesium 1.4 mg/dL (1.9-2.7); Potassium 4.2 mmol/L (3.5-5.0); Sodium 139 mmol/L (135-145); Total Protein 8.7 g/dL (6.4-8.9)
[2019-07-11] MEDS ORDERED: Magnesium Sulfate 2 gm BAG 2 GM/50 ML BAG IVPB ONE (10:49)
[2019-07-11 11:00] LABS: T4, Total 7.27 mcg/dL (6.09-12.23)
[2019-07-11 11:04] LABS: TSH (Thyroid Stimulating Horm) 0.96 mcIU/mL (0.34-5.60)
[2019-07-11] MEDS ORDERED: hydrALAZINE 20 mg/ml 1 ML Vial IV IV SLOW PU ONE (11:22)
[2019-07-11 12:06] LABS: Alcohol, S < 10 mg/dL (<10)
[2019-07-11] MEDS ORDERED: Thiamine 100 MG/ML 2 ml VIAL 100 MG, Folic Acid 1 MG, Multiple Vitamin IV ADULT 10 ML i... IV ONE (12:11)
[2019-07-11 12:32] LABS: Urine Appearance Cloudy; Urine Bilirubin Negative (Negative); Urine Blood 1+ (Negative); Urine Color Yellow; Urine Glucose Negative (Negative); Urine Ketones Negative (Negative); Urine Nitrite Negative (Negative); Urine Protein Negative (Negative); Urine Specific Gravity 1.011 (1.010-1.030); Urine Urobilinogen Negative (Negative)
[2019-07-11 12:42] LABS: Urine Bacteria Absent (Absent); Urine Red Blood Cell Trace(0-2/hpf) (Absent); Urine Squamous Epithelial Cell Present (Absent); Urine White Blood Cell Trace(0-5/hpf) (Absent)
[2019-07-11] MEDS ORDERED: HYDROcodone/ACETAMIN 5/325 mg TAB PO ONE (13:56)
[2019-07-11 16:07] VITALS: BP 173/111
== END 2019-07-11 16:06 | disposition home or self-care (01) ==
LOC: ED 09:54

== ENCOUNTER 2024-01-15 17:42 | Observation (INO) ==
[2024-01-15] MEDS: Ondansetron 4 mg VIAL 2 MG/ML 2 ml VIAL IV ONE (18:34)
[2024-01-15] MEDS: Lactated Ringers 1000 ml BAG 1,000 ML IV ONE (18:34)
[2024-01-15] MEDS: fentaNYL 100 mcg/2 ml 50 MCG/ML VIAL IV SLOW PU ONE (18:34)
[2024-01-15 18:41] LABS: ABS Basophils 0.1 10^3/uL (0.0-0.1); ABS Lymphocytes 1.9 10^3/uL (1.0-4.8); ABS Monocytes 0.6 10^3/uL (0.0-0.9); ABS Neutrophils 7.9 10^3/uL (1.5-7.6); Eosinophil % 0.2 %; Hematocrit 37.3 % (35-45); Hemoglobin 12.7 g/dL (11.5-14.3); Lymphocyte % 18.6 %; Mean Corpuscular Hemoglobin 30.6 pg (27-33); Mean Corpuscular Hgb Conc 34.1 g/dL (31-36); Mean Corpuscular Volume 89.8 fL (80-97); Mean Platelet Volume 7.6 fL (7.5-11.2); Platelet Count 207 10^3/uL (150-450); Red Blood Count 4.15 10^6/uL (3.63-4.92); White Blood Count 10.4 10^3/uL (3.8-11.8)
[2024-01-15 19:03] LABS: ALT 49 U/L (7-52); AST 53 U/L (13-39); Albumin 4.7 g/dL (3.2-5.2); Albumin/Globulin Ratio 1.1 (1-3); Alkaline Phosphatase 71 U/L (35-149); Anion Gap 17 mmol/L (2-16); Blood Urea Nitrogen 16 mg/dL (6-24); CO2 Carbon Dioxide 19 mmol/L (22-32); Calcium 10.1 mg/dL (8.6-10.3); Chloride 103 mmol/L (101-111); Creatine Kinase 414 U/L (10-223); Creatinine, Serum 0.86 mg/dL (0.51-0.95); Globulin 4.1 g/dL (2-4); Glucose 114 mg/dL (70-100); Magnesium 1.3 mg/dL (1.9-2.7); Potassium 3.6 mmol/L (3.5-5.0); Sodium 139 mmol/L (135-145); Total Bilirubin 1.2 mg/dL (0.2-1.0); Total Protein 8.8 g/dL (6.4-8.9); eGFR CKD-EPI 78.3 (>60)
[2024-01-15] MEDS ORDERED: Rocuronium 50 mg VIAL 10 mg/ml 5 ml VIAL (50 mg) ONE (19:47)
[2024-01-15] MEDS ORDERED: Succinylcholine 200 mg VIAL 20 mg/ml 10 ml VIAL (200 mg) ONE (19:47)
[2024-01-15] MEDS: Propofol 10 MG/ML 20 ML BTL IV PUSH ONE ×2 (20:22→20:30)
[2024-01-15] MEDS ORDERED: Labetalol IV 5 MG/ML 20 ml VIAL ONE (20:43)
[2024-01-15] MEDS: Labetalol IV 5 MG/ML 20 ml VIAL IV PUSH ONE (20:48)
[2024-01-15] MEDS: Morphine 4 MG/ML VIAL (1 ml) IV ONE (21:10)
[2024-01-15] MEDS: HYDROcodone/ACETAMIN 5/325 mg TAB PO ONE (21:17)
[2024-01-15] MEDS: Magnesium Sulfate 2 gm BAG 2 GM/50 ML BAG IVPB ONE (21:18)
[2024-01-15 22:46] LABS: Alcohol, S < 13 mg/dL (<13)
[2024-01-15] MEDS ORDERED: Ondansetron 4 mg VIAL 2 MG/ML 2 ml VIAL IV PRN (23:39)
[2024-01-15] MEDS ORDERED: Labetalol IV 5 MG/ML 20 ml VIAL IV PUSH PRN (23:41)
[2024-01-16] MEDS: Magnesium Sulf 4 GM/100 ML IV 4,000 MG/100 ML BAG IVPB ONE (00:15)
[2024-01-16] MEDS: diazePAM INJ CARPUJECT 5 MG/ML SYRINGE IV ONE (00:21)
[2024-01-16 01:01] LABS: Urine Appearance Clear; Urine Bilirubin Negative (Negative); Urine Blood Negative (Negative); Urine Color Light-Yellow; Urine Glucose Negative (Negative); Urine Ketones 1+ (Negative); Urine Nitrite Negative (Negative); Urine Protein 1+ (>=30 mg/dL) (Negative); Urine Specific Gravity 1.009 (1.002-1.030); Urine Urobilinogen Negative (Negative); Urine pH 5.5 (5.0-8.0)
[2024-01-16 01:03] LABS: Urine Bacteria 1+ /HPF (Absent); Urine Red Blood Cell Trace(0-2/hpf) /HPF (0-Trace); Urine Squamous Epithelial Cell Present /HPF (Absent); Urine White Blood Cell Trace(0-5/hpf) /HPF (0-Trace)
[2024-01-16 01:27] LABS: TSH Ultra Thyroid Stim Horm 1.33 mcIU/mL (0.34-5.60)
[2024-01-16 01:38] LABS: Folate 6.07 ng/mL (5.90-24.80)
[2024-01-16 01:39] LABS: Vitamin B12 188 pg/mL (180-914)
[2024-01-16 05:43] LABS: ABS Basophils 0.1 10^3/uL (0.0-0.1); ABS Lymphocytes 2.3 10^3/uL (1.0-4.8); ABS Monocytes 0.8 10^3/uL (0.0-0.9); ABS Neutrophils 5.8 10^3/uL (1.5-7.6); ABS Nucleated RBC 0.01 10^3/ul; Eosinophil % 0.4 %; Hematocrit 33.1 % (35-45); Hemoglobin 11.5 g/dL (11.5-14.3); Lymphocyte % 25.6 %; Mean Corpuscular Hemoglobin 31.3 pg (27-33); Mean Corpuscular Hgb Conc 34.8 g/dL (31-36); Mean Corpuscular Volume 89.9 fL (80-97); Mean Platelet Volume 7.3 fL (7.5-11.2); Nucleated Red Blood Cells % 0.1 %/100WBC (0.0-0.8); Platelet Count 148 10^3/uL (150-450); Red Blood Count 3.68 10^6/uL (3.63-4.92); Red Cell Distribution Width 15.4 % (12-17); White Blood Count 8.9 10^3/uL (3.8-11.8)
[2024-01-16 06:36] LABS: Albumin 3.8 g/dL (3.2-5.2); Albumin/Globulin Ratio 1.2 (1-3); Creatinine, Serum 1.08 mg/dL (0.51-0.95); Globulin 3.3 g/dL (2-4); Magnesium 3.4 mg/dL (1.9-2.7); Phosphorus 3.2 mg/dL (2.5-5.0); Potassium 3.7 mmol/L (3.5-5.0); Total Bilirubin 0.8 mg/dL (0.2-1.0); Total Protein 7.1 g/dL (6.4-8.9); eGFR CKD-EPI 59.5 (>60)
[2024-01-16] MEDS: Senna TAB 8.6 mg TAB PO SCH (19:59)
[2024-01-17 17:01] VITALS: BP 129/97
== END 2024-01-17 19:00 | disposition home or self-care (01) ==
LOC: ED 17:42 → EDHOLD 17:42 → SUATTDRO 22:34 → MED 01-16 08:54
PROVIDERS: ADMIT Internal Medicine; ATTEND Internal Medicine